=== PATIENT | female | born 1970 ===

== ENCOUNTER 2018-07-29 21:27 | Emergency (ER) | payer SELFPAY ==
[~2018-07-29] VITALS: Ht 152.4 cm; Wt 86.4 kg
[2018-07-29 21:34] VITALS: Ht 152.4 cm; Wt 86.4 kg
[2018-07-29] MEDS ORDERED: EXCEDRIN (21:36)
[2018-07-29] MEDS ORDERED: VITAMINS (21:36)
[2018-07-29] MEDS ORDERED: VALIUM 2 MG TAB2 MG PO (21:36)
[2018-07-29 22:23] LABS: BASOPHILS 0.2 % (0-2); EOSINOPHILS 0.8 % (0-7); HEMATOCRIT 41.9 % (36.0-48.0); HEMOGLOBIN 14.8 g/dL (12-16); IMMATURE GRANULOCYTES 0.2 % (0-5); LYMPHOCYTES 32.4 % (15-50); MCH 32.5 pg (26.0-34.0); MCHC 35.3 g/dL (31.0-37.0); MCV 92.1 fL (80.0-100.0); MEAN PLATELET VOLUME 9.3 fL (7.4-10.4); MONOCYTES 4.8 % (2-11); NEUTROPHILS 61.6 % (40-80); PLATELET COUNT 313 10x3/uL (130-400); RBC 4.55 10x6/uL (4.00-5.40); RDW 11.8 % (11.5-14.5); WBC 9.2 10x3/uL (4.8-10.8)
[2018-07-29 22:26] LABS: APPEARANCE CLEAR (CLEAR); BILIRUBIN NEGATIVE (NEGATIVE); COLOR YELLOW (YELLOW); GLUCOSE NEGATIVE (NEGATIVE); KETONE NEGATIVE (NEGATIVE); NITRITE NEGATIVE (NEGATIVE); PROTEIN NEGATIVE (NEGATIVE); UROBILINOGEN NORMAL (NORMAL)
[2018-07-29 22:36] LABS: ALBUMIN 3.9 g/dL (3.4-5.0); ALKALINE PHOSPHATASE 66 U/L (46-116); ALT (SGPT) 22 U/L (10-68); BILIRUBIN - TOTAL 0.53 mg/dL (0.2-1.3); CALC OSMOLALITY 280 mosm/kg (275-300); CALCIUM 9.1 mg/dL (8.5-10.1); CARBON DIOXIDE 25.9 mmol/L (21.0-32.0); CHLORIDE - SERUM 104 mmol/L (98-107); CREATININE - SERUM 0.8 mg/dL (0.6-1.3); GLUCOSE 93 mg/dL (74-106); POTASSIUM - SERUM 3.5 mmol/L (3.5-5.1); PROTEIN - SERUM 7.6 g/dL (6.4-8.2); SODIUM 142 mmol/L (136-145); UREA NITROGEN 8 mg/dL (7-18); eGFR NON AFRICAN AMERICAN 82 mL/min (90-120)
[2018-07-29 22:48] LABS: CKMB 0.4 U/L (0.0-3.6)
[2018-07-29 22:52] LABS: TROPONIN-I < 0.017 ng/mL (0.000-0.060)
[2018-07-30 01:59] VITALS: BP 103/76
== END 2018-07-30 02:00 | disposition home or self-care (01) ==
LOC: D.ER 21:27
PROVIDERS: Family Medicine
DX: G43.909 Migraine, unspecified, not intractable, without status migrainosus (principal); F41.9 Anxiety disorder, unspecified; R07.9 Chest pain, unspecified